=== PATIENT | male | born 1990 | race Caucasian/White ===

== ENCOUNTER → 2019-10-24 10:59 | Outpatient (BNVA) | payer SELFPAY | PROVIDERS: Family Provider Nurse Practitioner Family; Visit Provider Nurse Practitioner Family | DX: I10 Essential (primary) hypertension (principal) | CPT/HCPCS: 80053; 84443; 85025 ==

== ENCOUNTER → 2020-08-16 10:28 | Outpatient (BNVA) | payer SELFPAY | PROVIDERS: Family Provider Nurse Practitioner Family; PCP Nurse Practitioner; Visit Provider Nurse Practitioner | DX: I10 Essential (primary) hypertension (principal); N45.2 Orchitis | CPT/HCPCS: 85025 ==

== ENCOUNTER 2020-10-04 21:41 | Emergency (ER) | payer SELFPAY ==
[2020-10-04 21:58] VITALS: BP 150/95; PULSE 78; RESP 18; TEMP 36.7; O2SAT 99
[2020-10-04 22:04] VITALS: BP 140/82; PULSE 76; RESP 15; O2SAT 99
--- NOTE | 2020-10-04 22:11 | CTR_ITS ---
PROCEDURE INFORMATION: Exam: CT Left Upper Extremity With Contrast, Elbow Exam date and time: 10/04/2020 10:25 PM Age: 30 years old Clinical indication: Pain; Swelling; Elbow; Left; Additional info: Cellulitis, ? septic arthritis TECHNIQUE: Imaging protocol: CT of the Left upper extremity with intravenous contrast was performed. Exam focused on the elbow. Radiation optimization: All CT scans at this facility use at least one of these dose optimization techniques: automated exposure control; mA and/or kV adjustment per patient size (includes targeted exams where dose is matched to clinical indication); or iterative reconstruction. Contrast material: OMNI 300; Contrast volume: 95 ml; Contrast route: INTRAVENOUS (IV); COMPARISON: No relevant prior studies available. RADIATION DOSE METRICS: Total DLP (mGy-cm): 632.34 FINDINGS: Bones/joints: The elbow is normal. The visible portion of the distal humerus and proximal radius and ulna are normal. No fracture. No bone erosion. No joint effusion. Soft tissues: There is a 2.0 x 1.3 x 1.2 cm superficial dermal and subdermal fluid collection with surrounding edema overlying the posterolateral aspect of the elbow. There is adjacent skin thickening and subcutaneous edema. Musculature is normal. There is no edema deep to the muscular fascia. Vasculature: Visible vasculature is normal. CT/CT elbow LT w con [id number] IMPRESSION: 2 cm superficial abscess involving the skin and subcutaneous fat posterior to the elbow. There is surrounding cellulitis. No sign of bone or joint infection. Radiation Dose CTDIVOL = (mGy): DLP = 632.34 (mGy-cm)
[2020-10-04 22:33] LABS: Basophils # 0.1 10^3/uL (0.0-0.1); Basophils % 0.7 %; Eosinophils # 0.1 10^3/uL (0.0-0.8); Eosinophils % 1.2 %; Hematocrit 43.7 % (42.0-52.0); Hemoglobin 14.9 g/dL (11.7-16.6); Lymphocytes # 2.4 10^3/uL (0.8-4.8); Lymphocytes % 24.5 %; Mean Corpuscular HGB Conc 34.1 g/dL (30.0-36.0); Mean Corpuscular Hemoglobin 30.2 pg (28.0-34.0); Mean Corpuscular Volume 88.6 fL (80-94); Mean Platelet Volume 10.7 fL (7.4-10.4); Monocytes # 0.9 10^3/uL (0.2-0.9); Monocytes % 9.5 %; Neutrophils # 6.19 10^3/uL (1.8-7.7); Neutrophils % 63.8 %; Nucleated Red Blood Cells % 0 %; Platelet Count 233 10^3/cmm (130-400); Red Blood Count 4.93 10^6/uL (4.1-5.3); Red Cell Distribution Width 12.2 % (12.1-15.1); White Blood Count 9.7 10^3/uL (4.0-10.0)
[2020-10-04] MEDS: iohexol 300 mg/mL 100 mL Btl IV (22:35)
[2020-10-04 22:53] LABS: Alanine Aminotransferase 10 U/L (0-41); Albumin Level 4.2 g/dL (3.5-5.2); Alkaline Phosphatase 58 IU/L (40-130); Anion Gap 14.4 (5-19); Aspartate Amino Transferase 12 U/L (0-40); Blood Urea Nitrogen 14 mg/dL (6-20); Calcium 8.8 mg/dL (8.5-10.5); Carbon Dioxide 25 mmol/L (22-29); Chloride 104 mmol/L (98-107); Globulin 2.6 g/dL (1.3-4.6); Glomerular Filtration Rate 100.5 mL/min (90-130); Glucose 113 mg/dL (65-115); Osmolality Calculated 291 mOsm/kg (285-295); Potassium 3.4 mmol/L (3.5-5.1); Sodium 140 mmol/L (136-145); Total Bilirubin 0.4 mg/dL (0.15-1.2); Total Protein 6.8 g/dL (6.6-8.7)
[2020-10-04 22:54] LABS: Lactate (Lactic Acid level) 0.9 mmol/L (0.5-2.2)
[2020-10-04] MEDS: vancomycin 1,000 MG in sodium chloride 0.9% 250 ML 250 MG IV (23:00)
--- NOTE | 2020-10-04 23:16 | W.ED.SKABFB ---
HPI - Skin/Abscess/Foreign Bdy General: Chief complaint: Skin/Abscess/Foreign Body Stated complaint: INFECTION ON L ELBOW Time Seen by Provider: 10/04/20 22:02 Source: patient Mode of arrival: ambulatory Limitations: no limitations History of Present Illness: HPI narrative: Patient is a 30-year-old male with a history of hypertension who presents to the emergency department with swelling, redness, purulent drainage from his elbow. He states that symptoms started about 1 week ago when he noticed 3 small spots on his left elbow. They eventually got bigger and eventually started to drain purulent material from the wounds. He noticed significant swelling of his left forearm but he had some leftover amoxicillin which he had been taking over the last 3 days. He said the swelling initially got better but now is gotten much worse and even worse than before. He has swelling from proximal to the left elbow to just before his wrist. There is also red streaking up his left forearm. He denies any fever body aches. He denies any IV drug abuse. The wound started draining yesterday. complaint: abscess/boil Onset (ago): week(s) (1) Location: LUE Severity: severe Quality: aching Pain Consistency: constant Relieving factors: none Associated symptoms: Reports chills; Deny arthralgias, cough, fever(s), itching, myalgias, nausea, rigidity, short of breath or vomiting Review of Systems General: Reports: 10 or more systems reviewed and unremarkable except in HPI and below Const: Reports: chills; Denies: fever(s) GI: Denies: nausea or vomiting [facility] ED PFSH: Medical History History of migraine Surgical History History of lymph node dissection of axilla age 15 right side Family History Father Hypertension Mother Hypertension Social History Smoking and tobacco status: former smoker Second hand smoke exposure: No Smoking risk assessment/counseling performed?: No Alcohol intake: never Desire information about alcohol rehabilitation?: No Counseling given: No Desire information about substance/drug rehabilitation?: No Counseling given: No Adopted: No Caregiver/support person: Yes Lives independently: Yes Household members: friend(s) Housing: Manufactured/Mobile home Marital status: Single Number of children: 2 Current occupational status: employed Current occupation: [employer] History of recent travel: No Current gender identity: Male Physical Exam Const: COMMON NORMALS: no acute distress, average body habitus, patient oriented x3, no limitations, healthy appearing, alert and well nourished HENMT: COMMON NORMALS: normocephalic, atraumatic and moist oral mucous membranes HEAD & SCALP: normocephalic and atraumatic Neck/C-Spine: COMMON NORMALS: no JVD Resp: COMMON NORMALS: normal respiratory effort, No retractions, No use of accessory muscles, clear to auscultation bilaterally and percussion normal AUSCULTATION: clear to auscultation bilaterally PERCUSSION: percussion normal Cardio: COMMON NORMALS: no JVD, regular rate, regular rhythm, S1 normal heart sound present, S2 normal heart sound present, No gallops present (Cardio), No clicks present (Cardio), No murmurs present (Cardio), No rub (Cardio) and Peripheral pulses 2+ throughout RATE: regular rate RHYTHM: regular rhythm HEART SOUNDS: S1 normal heart sound present and S2 normal heart sound present PERIPHERAL PULSES: Peripheral pulses 2+ throughout GI: COMMON NORMALS: Normal to inspection, nondistended, normoactive bowel sounds present, Soft to palpation, non-tender, No hepatosplenomegaly present, no masses and no bruits PALPATION: Yes Soft to palpation and Yes No hepatosplenomegaly present Extremity: COMMON NORMALS: normal to inspection, full ROM, capillary refill normal, no calf tenderness and no pedal edema LEFT UPPER EXTREMITY: Yes elbow joint Left elbow: Yes inspection (Significant swelling from proximal to the left elbow to proximal wrist), Yes palpation (Warm, erythematous, tender. Purulent drainage), Yes ROM (Only mildly reduced) and Yes neurovascular exam (Intact) Neuro: COMMON NORMALS: patient oriented x3 SENSORIUM/ORIENTATION: Yes alert Skin: COMMON NORMALS: no rashes or lesions noted, no wounds, turgor normal, no jaundice, no petechiae and no mottling GENERAL SKIN EXAM: no rashes or lesions noted and turgor normal Course Reevaluation(s): Reevaluation #1: Discussed his lab and imaging findings with him. Explained that he only has a superficial abscess with no involvement of the elbow joint. Abscess is small and does not need an incision and drainage at this time as it is already draining. He is given a dose of vancomycin in the emergency department and will be discharged home on oral Bactrim. Wound care instructions given to the patient. He is to follow-up with his primary care provider in a few days for wound evaluation. He voiced understanding and is in agreement with the plan. Time: 23:27 Vital Signs: Vital signs: Vital Signs Temperature 98.1 F 10/04/20 21:58 Pulse Rate 78 10/04/20 21:58 Respiratory Rate 18 10/04/20 21:58 Blood Pressure 150/95 10/04/20 21:58 Pulse Oximetry 99 10/04/20 21:58 MDM - Skin/Abscess/Foreign Bdy MDM Narrative: Medical decision making narrative: 30-year-old male who has a superficial abscess of his left elbow with surrounding cellulitis. Abscess is already draining and there is no involvement of the joints. Wound was cleaned and a dressing applied to the wound by the nurse. He was given a dose of intravenous vancomycin in the emergency department and discharged home on oral Bactrim. Wound care instructions given to the patient. He is to follow-up with his primary care provider for wound evaluation and wound care. Medical Records: Attestation: I reviewed the patient's medical records. Lab Data: Attestation: I reviewed the patient's lab results. Labs: Lab Results 10/04/20 10/04/20 10/04/20 Range/Units 22:26 22:26 22:26 WBC 9.7 (4.0-10.0) 10^3/ uL RBC 4.93 (4.1-5.3) 10^6/u L Hgb 14.9 (11.7-16.6) g/dL Hct 43.7 (42.0-52.0) % MCV 88.6 (80-94) fL MCH 30.2 (28.0-34.0) pg MCHC 34.1 (30.0-36.0) g/dL RDW 12.2 (12.1-15.1) % Plt Count 233 (130-400) 10^3/c mm MPV 10.7 H (7.4-10.4) fL Neut % (Auto) 63.8 % Lymph % (Auto) 24.5 % Wilbarger % (Auto) 9.5 % Eos % (Auto) 1.2 % Baso % (Auto) 0.7 % Neut # (Auto) 6.19 (1.8-7.7) 10^3/u L Lymph # (Auto) 2.4 (0.8-4.8) 10^3/u L Wilbarger # (Auto) 0.9 (0.2-0.9) 10^3/u L Eos # (Auto) 0.1 (0.0-0.8) 10^3/u L Baso # (Auto) 0.1 (0.0-0.1) 10^3/u L Nucleated RBC % (a uto) 0 % Nucleated RBCs # 0.0 /100WBC Sodium 140 (136-145) mmol/L Potassium 3.4 L (3.5-5.1) mmol/L Chloride 104 (98-107) mmol/L Carbon Dioxide 25 (22-29) mmol/L Anion Gap 14.4 (5-19) BUN 14 (6-20) mg/dL Creatinine 0.9 (0.7-1.2) mg/dL GFR Calculation 100.5 (90-130) mL/min Glucose 113 (65-115) mg/dL Calculated Osmolal ity 291 (285-295) mOsm/k g Lactate 0.9 (0.5-2.2) mmol/L Calcium 8.8 (8.5-10.5) mg/dL Total Bilirubin 0.4 (0.15-1.2) mg/dL AST 12 (0-40) U/L ALT 10 (0-41) U/L Alkaline Phosphata se 58 (40-130) IU/L Total Protein 6.8 (6.6-8.7) g/dL Albumin 4.2 (3.5-5.2) g/dL Globulin 2.6 (1.3-4.6) g/dL Imaging Data^: Other CT: Attestation: I personally reviewed and interpreted this imaging study as follows: Radiologist's impression: [employer] [place], [place] [address]DY Scan ReportSigned Patient: Angel Hernandez #: [id number]: 1990Acct#:[id number]/Sex: 30 / MADM Date: 10/04/20Loc: ERRoom/Bed:Attending Dr: Ordering Provider/Ordering MD: Jumana Rashid MD, VELASQUEZ Date of Service: 10/04/20 Procedure(s): CT elbow LT w con [id number] Accession Number(s): [id number] Report Number: [id number] PROCEDURE INFORMATION: Exam: CT Left Upper Extremity With Contrast, Elbow Exam date and time: 10/04/2020 10:25 PM Age: 30 years old Clinical indication: Pain; Swelling; Elbow; Left; Additional info: Cellulitis, ? septic arthritis TECHNIQUE: Imaging protocol: CT of the Left upper extremity with intravenous contrast was performed. Exam focused on the elbow. Radiation optimization: All CT scans at this facility use at least one of these dose optimization techniques: automated exposure control; mA and/or kV adjustment per patient size (includes targeted exams where dose is matched to clinical indication); or iterative reconstruction. Contrast material: OMNI 300; Contrast volume: 95 ml; Contrast route: INTRAVENOUS (IV); COMPARISON: No relevant prior studies available. RADIATION DOSE METRICS: Total DLP (mGy-cm): 632.34 FINDINGS: Bones/joints: The elbow is normal. The visible portion of the distal humerus and proximal radius and ulna are normal. No fracture. No bone erosion. No joint effusion. Soft tissues: There is a 2.0 x 1.3 x 1.2 cm superficial dermal and subdermal fluid collection with surrounding edema overlying the posterolateral aspect of the elbow. There is adjacent skin thickening and subcutaneous edema. Musculature is normal. There is no edema deep to the muscular fascia. Vasculature: Visible vasculature is normal. CT/CT elbow LT w con [id number] IMPRESSION: 2 cm superficial abscess involving the skin and subcutaneous fat posterior to the elbow. There is surrounding cellulitis. No sign of bone or joint infection. Radiation Dose CTDIVOL = (mGy): DLP = 632.34 (mGy-cm) Dictated By:Estuardo Floyd MDSigned By:Estuardo Floydigned Date/Time:10/04/202318DD/ 17 Discharge Plan Discharge Patient Disposition: Home Clinical Impression: Cellulitis Qualifiers: Site of cellulitis: extremity Site of cellulitis of extremity: upper extremity Laterality: left Qualified Code(s): L03.114 - Cellulitis of left upper limb Abscess of elbow Qualifiers: Laterality: left Qualified Code(s): L02.414 - Cutaneous abscess of left upper limb Condition: Stable Prescriptions: New Bactrim DS 800-160 mg tablet 1 tab PO BID 7 Days Qty: 14 RF: 0 Continued lisinopril 20 mg tablet 20 mg PO DAILY Qty: 90 RF: 1 Discontinued ciprofloxacin HCl [Cipro] 500 mg tablet 500 mg PO Q12H Qty: 20 RF: 0 Discharge Orders: Discharge ED (Routine); Ordered 10/04/20 Ordered By: Jumana Rashid Referrals: Junior Madden, [employer] [Primary Care Provider] - 1-3 days Discharge Diet: Usual diet Discharge Activity: Increase activity as tolerated Patient Instructions: Cellulitis (ED), Abscess (ED) Activity Restrictions/Additional Instructions: Return for any new or worsening symptoms. Follow-up with your primary care provider within 3 days for wound evaluation. Clean the wound daily with soap and water and cover with a clean gauze. Take the antibiotic as prescribed. If you think the wound is getting worse or is not getting significantly better please return to the emergency department to be evaluated. Coding Level of Care Code ED Emergency Medical Service Manager for [facility] Exam Comprehensive
[2020-10-05 00:14] VITALS: BP 138/70; PULSE 75
[2020-10-05 00:26] VITALS: BP 138/80; PULSE 75; RESP 17; TEMP 36.6; O2SAT 99
[2020-10-05 00:30] LABS: C Reactive Protein 60.6 mg/L (0.0-4.9)
== END 2020-10-05 00:28 | disposition home or self-care (01) ==
PROVIDERS: Emergency Provider Family Medicine; PCP Nurse Practitioner
DX: L03.114 Cellulitis of left upper limb (principal); L02.414 Cutaneous abscess of left upper limb; Z87.891 Personal history of nicotine dependence
CPT/HCPCS: 73201; 80053; 83605; 85025; 86140; 87040; 96365; 99283; J3370; J7050; Q9967

== ENCOUNTER → 2021-04-29 10:19 | Outpatient (BNVA) | payer OTHER, SELFPAY | PROVIDERS: PCP Nurse Practitioner; Visit Provider Nurse Practitioner Family | DX: Z20.822 Contact with and (suspected) exposure to COVID-19 (principal) | CPT/HCPCS: 87635 ==

== ENCOUNTER 2021-05-04 08:29 | Outpatient (CLI) | payer OTHER, SELFPAY ==
[2021-05-04 08:40] VITALS: BP 139/97; PULSE 92; RESP 20; TEMP 36.8; O2SAT 99
[2021-05-04 09:05] VITALS: BP 133/87; PULSE 84; RESP 19; TEMP 37.3; O2SAT 95; BMI 25.7
[2021-05-04 10:05] VITALS: BP 133/51; PULSE 93; RESP 21; TEMP 37.9; O2SAT 99
== END 2021-05-04 08:30 | disposition home or self-care (01) ==
LOC: OPS 08:33
PROVIDERS: PCP Nurse Practitioner; Visit Provider Nurse Practitioner Family
DX: U07.1 COVID-19 (principal)
CPT/HCPCS: 96365

== ENCOUNTER → 2021-07-12 17:12 | Outpatient (BNVA) | payer OTHER, SELFPAY | PROVIDERS: PCP Nurse Practitioner; Visit Provider Nurse Practitioner | DX: I10 Essential (primary) hypertension (principal) | CPT/HCPCS: 80053; 80061; 84443 ==

== ENCOUNTER 2022-01-04 08:38 | Outpatient (CLI) | payer OTHER, SELFPAY ==
--- NOTE | 2022-01-04 08:45 | US_ITS ---
WS: [id number] ULTRASOUND RENAL TECHNIQUE: Ultrasound examination of both kidneys. CLINICAL INFORMATION: I10 - Essential (primary) hypertension COMPARISON: None. FINDINGS: RIGHT: Right kidney is normal in size and appearance. Echogenicity: Normal. Cortical thickness: 1.1 cm; Normal. Hydronephrosis: None. Perinephric fluid: None. Right kidney measures: 10.7 cm x 4.8 cm x 4.9 cm. LEFT: Left kidney is normal in size and appearance. Echogenicity: Normal. Cortical thickness: 1.5 cm; Normal. Hydronephrosis: None. Perinephric fluid: None. Left kidney measures: 11.9 cm x 5.0 cm x 4.9 cm. Normal visualized aorta. Prostate measures 3.1 x 2.9 x 2.4 cm. Bladder is decompressed. US/US renal BI* [id number] IMPRESSION: 1. Normal renal ultrasound. No hydronephrosis in either kidney. 2. Prostate measures 3.1 x 2.9 x 2.4 cm. 3. Bladder is decompressed.
== END 2022-01-04 08:39 | disposition home or self-care (01) ==
PROVIDERS: PCP Nurse Practitioner; Visit Provider Nurse Practitioner
DX: I10 Essential (primary) hypertension (principal)
CPT/HCPCS: 76770

== ENCOUNTER → 2022-03-29 08:57 | Outpatient (BNVA) | payer OTHER, SELFPAY | PROVIDERS: PCP Nurse Practitioner; Visit Provider Nurse Practitioner | DX: I10 Essential (primary) hypertension (principal); R07.9 Chest pain, unspecified | CPT/HCPCS: 80053; 84484 ==

== ENCOUNTER → 2022-10-17 16:10 | Outpatient (BNVA) | payer OTHER, SELFPAY | PROVIDERS: PCP Nurse Practitioner; Visit Provider Nurse Practitioner | DX: I10 Essential (primary) hypertension (principal); Z68.26 Body mass index [BMI] 26.0-26.9, adult | CPT/HCPCS: 80053 ==

== ENCOUNTER → 2023-02-06 08:53 | Outpatient (BNVA) | payer OTHER, SELFPAY | PROVIDERS: PCP Nurse Practitioner; Visit Provider Nurse Practitioner | DX: Z20.2 Contact with and (suspected) exposure to infections with a predominantly sexual mode of transmission (principal) | CPT/HCPCS: 86695; 86696 ==

== ENCOUNTER → 2023-05-31 14:56 | Outpatient (BNVA) | payer OTHER, SELFPAY | PROVIDERS: PCP Nurse Practitioner; Visit Provider Nurse Practitioner | DX: I10 Essential (primary) hypertension (principal) | CPT/HCPCS: 80053; 80061 ==

== ENCOUNTER → 2023-12-18 10:24 | Outpatient (BNVA) | payer OTHER, SELFPAY | PROVIDERS: PCP Nurse Practitioner; Visit Provider Nurse Practitioner | DX: I10 Essential (primary) hypertension (principal); N18.2 Chronic kidney disease, stage 2 (mild) | CPT/HCPCS: 80053; 81000 ==

== ENCOUNTER → 2024-03-04 09:00 | Outpatient (BNVA) | payer OTHER, SELFPAY | PROVIDERS: PCP Nurse Practitioner; Visit Provider Nurse Practitioner | DX: I10 Essential (primary) hypertension (principal); N18.2 Chronic kidney disease, stage 2 (mild) | CPT/HCPCS: 80048; 83735 ==

== ENCOUNTER → 2024-08-21 09:31 | Outpatient (BNVA) | payer OTHER, SELFPAY | PROVIDERS: PCP Nurse Practitioner; Visit Provider Clinical Nurse Specialist Adult Health | DX: N18.2 Chronic kidney disease, stage 2 (mild) (principal); I10 Essential (primary) hypertension | CPT/HCPCS: 80053; 85025 ==

== ENCOUNTER → 2024-11-12 08:35 | Outpatient (BNVA) | payer OTHER, SELFPAY | PROVIDERS: PCP Nurse Practitioner; Visit Provider Nurse Practitioner | DX: L98.9 Disorder of the skin and subcutaneous tissue, unspecified (principal) | CPT/HCPCS: 88305 ==

== ENCOUNTER → 2025-01-15 09:46 | Outpatient (BNVA) | payer OTHER, SELFPAY | PROVIDERS: PCP Nurse Practitioner; Visit Provider Nurse Practitioner | DX: M25.522 Pain in left elbow (principal) | CPT/HCPCS: 73080 ==

== ENCOUNTER → 2025-05-08 11:12 | Outpatient (BNVA) | payer OTHER, SELFPAY | PROVIDERS: PCP Nurse Practitioner; Visit Provider Clinical Nurse Specialist Adult Health | DX: R50.9 Fever, unspecified (principal) | CPT/HCPCS: 87426 ==